=== PATIENT | male | born 1950 | race Caucasian/White ===

== ENCOUNTER 2021-09-18 08:02 | Observation (INO) | payer MEDICARE, OTHER ==
[2021-09-18] MEDS ORDERED: Nitroglycerin 2% Ointment 1 INCH/1 GM Packet ONE (08:46)
[2021-09-18 08:57] LABS: #Basophils 0.1 10x3/uL (0.0-0.2); #Eosinphils 0.1 10x3/uL (0.0-0.5); #Monocytes 1.1 10x3/uL (0.0-1.1); #Neutrophils 6.4 10x3/uL (1.5-8.4); %Basophils 0.5 % (0.0-2.0); %Eosinophils 1.1 % (0.0-6.0); %Lymphocytes 28.5 % (18.0-47.0); %Monocytes 9.9 % (0.0-10.0); %Neutrophils 59.8 % (40.0-75.0); Hemoglobin 15.5 g/dL (13.5-17.5); Mean Corpuscular HGB CONC 34.5 g/dL (32.0-36.0); Mean Corpuscular Hemoglobin 30.8 pg (27.0-33.0); Mean Corpuscular Volume 89.3 fl (81.2-95.1); Mean Platelet Volume 9.4 fl (7.4-10.4); Platelet Count 246 10x3/uL (150-450); RBC Distribution Width 12.7 % (11.5-14.5); Red Blood Cell (RBC) Count 5.03 10x6/uL (4.32-5.72); White Blood Cell (WBC) Count 10.8 10x3/uL (3.5-10.5)
[2021-09-18 09:04] LABS: ALT (SGPT) 25 U/L (8-55); AST (SGOT) 24 U/L (5-34); Albumin 4.5 g/dL (3.4-4.8); Alkaline Phosphatase 87 U/L (40-110); Anion Gap 17 mmol/L (10-20); BUN (Urea Nitrogen) 8 mg/dL (8.4-25.7); Bilirubin, Total 0.6 mg/dL (0.2-1.2); Calc. Creatinine Clearance 0 mL/min (70-130); Calcium 9.2 mg/dL (7.8-10.44); Carbon Dioxide 25 mmol/L (23-31); Chloride 104 mmol/L (98-107); Globulin 2.9 g/dL (2.4-3.5); Glucose 98 mg/dL (83-110); Lipase 37 U/L (8-78); Potassium 4.8 mmol/L (3.5-5.1); Protein, Total 7.4 g/dL (5.8-8.1); Sodium 141 mmol/L (136-145)
[2021-09-18] MEDS ORDERED: Aspirin Chewable 81 MG TAB ONE (12:34)
[2021-09-18 13:35] LABS: Troponin I Less than 0.010 ng/mL (< 0.028)
[2021-09-18] MEDS ORDERED: Nitroglycerin 0.4 MG TAB (25 Tab Bottle) SL PRN (14:21)
[2021-09-18] MEDS ORDERED: traZODone HCl 50 MG TAB PO PRN (14:23)
[2021-09-18] MEDS ORDERED: Ibuprofen 600 MG TAB PO PRN (15:34)
[2021-09-18] MEDS ORDERED: Acetaminophen 325 MG TAB ONE (15:38)
[2021-09-18] MEDS: Acetaminophen 325 MG TAB PO PRN ×2 (15:40→23:11)
[2021-09-18 16:33] LABS: Troponin I Less than 0.010 ng/mL (< 0.028)
[2021-09-18] MEDS ORDERED: Carvedilol 25 MG TAB PO SCH (17:00)
[2021-09-18] MEDS ORDERED: Ibuprofen 200 MG TAB ONE (19:17)
[2021-09-18 20:24] LABS: SARS-CoV-2 NAA Rapid Test Not Detected (NotDetected)
[2021-09-18 23:39] VITALS: BMI 24.7
[2021-09-19 05:45] LABS: Cardiac Risk 3.5 (Less than 4.5)
[2021-09-19] MEDS: Acetaminophen 325 MG TAB PO PRN (06:13)
[2021-09-19 08:35] VITALS: BP 121/63; TEMP 99.5
[2021-09-19] MEDS ORDERED: Losartan Potassium 50 MG TAB PO SCH (09:00)
[2021-09-19] MEDS ORDERED: Amlodipine 5 MG TAB PO SCH (09:00)
[2021-09-19] MEDS ORDERED: Aspirin Chewable 81 MG TAB PO SCH (09:00)
[2021-09-20] MEDS ORDERED: Thiamine 100 MG TAB PO ONE (09:58)
[2021-09-20] MEDS ORDERED: Magnesium Oxide 400 MG TAB PO ONE (09:58)
[2021-09-20] MEDS ORDERED: Cyanocobalamin (Vitamin B-12) 1,000 MCG TAB PO ONE (09:58)
== END 2021-09-19 12:07 | disposition home or self-care (01) ==
LOC: CSHERS 08:02 → CSHERHOLD 12:55 → UNDOADMOB 18:15 → INTOOBSV 18:15 → CSHERHOLD 18:15 → CSHTELE 21:24 → CSHERHOLD 21:24
PROVIDERS: ADMIT Family Medicine; ATTEND Physician Assistant
DX: R07.89 Other chest pain (principal); K21.9 Gastro-esophageal reflux disease without esophagitis; F17.210 Nicotine dependence, cigarettes, uncomplicated; Z72.89 Other problems related to lifestyle; Z79.899 Other long term (current) drug therapy; I10 Essential (primary) hypertension; Z20.822 Contact with and (suspected) exposure to COVID-19
CPT/HCPCS: 71045; 71275; 80053; 80061; 83690; 83880; 84484 ×2; 85025; 85379; 93005; 99285; G0378 ×3; U0002; 36415